=== PATIENT | male | born 1985 | race Caucasian/White ===

== ENCOUNTER 2016-11-20 16:13 | Emergency (ER) | payer SELFPAY ==
[~2016-11-20] VITALS: Wt 65.0 kg
[~2016-11-20 16:13] MED LIST: NO MEDS
--- NOTE | 2016-11-20 18:48 | RADRPT ---
PROCEDURE: Chest x-ray CLINICAL INDICATION: Swallowed metallic screw TECHNIQUE: Chest single view COMPARISON: None FINDINGS: The heart is normal in size. The pulmonary vessels are normal in caliber. The lungs are clear. Th e costophrenic angles are sharp. The visualized bony thorax is unremarkable. IMPRESSION: No acute cardiopulmonary disease. No radiopaque/metallic foreign body is noted in the chest. Recommend a KUB for further evaluation RPTAT: HH .Lan Alfonso MD, Date Time Electronically viewed and signed by .Lan Alfonso MD, on 11/20/2016 18:48 .W/
--- NOTE | 2016-11-20 19:00 | RADRPT ---
PROCEDURE: X-ray neck CLINICAL INDICATION: Ingested metal screw. TECHNIQUE: AP and lateral views of the neck. COMPARISON: None available FINDINGS: The aerodigestive tract is normal. No radiopaque foreign body is identified. There is no preverteb ral soft tissue swelling. There are very mild degenerative changes along the mid cervical spine. IMPRESSION: 1. Normal appearance of the aerodigestive tract. 2. No radiopaque foreign body. RPTAT: HTAR .Gregorio Raymond MD, Date Time Electronically viewed and signed by .Gregorio Raymond MD, on 11/20/2016 19:00 .R/
--- NOTE | 2016-11-20 19:00 | RADRPT ---
PROCEDURE: XR abdomen . CLINICAL INDICATION: swallowed metal screw TECHNIQUE: AP abdomen x-ray COMPARISON: None. FINDINGS: The bowel gas pattern is normal. There is no evidence of obstruction. There are no abnormal calcific ations overlying the urinary tracts. There is no gross abnormal soft tissue mass. The osseus structures are unremarkable. IMPRESSION: Unremarkable abdomen radiograph. No radiopaque foreign body is identified in the abdomen or pelvis. RPTAT: HBST .Olaf Serna MD, MD Date Time Electronically viewed and signed by .Olaf Serna MD, MD on 11/20/2016 19:00 .T/
--- NOTE | 2016-11-20 19:38 | ERD ---
ER Documentation Chief Complaint Date/Time DATE: 11/20/16 TIME: 19:33 Chief Complaint foreign body in throat swallowed 2 days ago. no excessive salivation HPI This is a 31-year-old female this is a 31-year-old male presenting to the emergency department stating that he feels as if he has a metal screw stuck in his throat. Patient states that he put a metal screw in his mouth 2 days ago and he thinks he may have swallowed it but he is not sure. Patient denies any pain or excessive salivation. Patient states that he has been eating well. He states that he feels like he feels in his throat ROS All systems reviewed and are negative except as per history of present illness. Medications Home Meds Reported Medications [No Meds ] No Conflict Check 02/21/14 Allergies Allergies: Coded Allergies: No Known Allergy (Unverified , 10/12/13) PMhx/Soc Medical and Surgical Hx: pt denies Medical Hx, pt denies Surgical Hx History of Surgery: No Anesthesia Reaction: No Hx Neurological Disorder: No Hx Respiratory Disorders: No Hx Cardiac Disorders: No Hx Psychiatric Problems: No Hx Miscellaneous Medical Probl: No Hx Alcohol Use: Yes (occasional) Hx Substance Use: No Hx Tobacco Use: No Smoking Status: Never smoker Physical Exam Vitals Vital Signs Date Time Temp Pulse Resp B/P Pulse Ox O2 Delivery O2 Flow Rate FiO2 11/20/16 16:23 98.8 72 20 123/67 99 Physical Exam GENERAL: WD/WN, in no apparent distress, non-toxic appearing HENT: NC/AT, oropharynx is normal, airways intact, Patient states that he feels the foreign body pointing to his trachea where the laryngeal prominence/mckay's apple is EYES: Conjunctiva normal NECK: Supple. No meningeal signs PULM: Clear to auscultation bilaterally. Normal labored breathing CV: Regular rate and rhythm, no murmurs GI: Soft, non tender, non distended. Normal bowel sounds BACK: No masses EXT: No clubbing, cyanosis, or edema. NEURO: Awake and Alert SKIN: No petechiae or rashes PSYCH: Normal mood Procedures/MDM This is a 31-year-old male presenting to the emergency room complaining that he may have a metal screw was stuck in his throat for 2 days. Patient states that he had a metal screw in his mouth and he is unsure if he swallowed or not. Patient patient locates where he feels the middle screw at the laryngeal prominence/Mckay's apple of his trachea, I did not feel any other lesions on the side of his throat. An x-ray of the neck, chest and abdomen was done and there was no evidence of radiopaque or metal foreign objects. Patient's vital signs are stable, he is saturating well on room air, there is no evidence of respiratory distress, patient airways are intact. I do not believe patient has a retained foreign body. I discussed with him to return to the emergency department for any worsening signs or symptoms. Patient understands and agrees with this plan. Departure Diagnosis: Primary Impression: Foreign body Condition: Stable Patient Instructions: Swallowed Object, Swallowed Foreign Body (Adult) Additional Instructions: Return to this facility if you are not improving as expected. KEIKO GUERRERO PA-C Nov 20, 2016 19:38
== END 2016-11-20 19:37 | disposition home or self-care (01) ==
LOC: FTE 16:13
DX: R09.89 Other specified symptoms and signs involving the circulatory and respiratory systems (principal)
CPT/HCPCS: 70360; 71010; 74000